=== PATIENT | female | born 1950 | race Caucasian/White ===

== ENCOUNTER 2016-12-13 07:06 | Day surgery (SDC) | payer MEDICARE, OTHER ==
--- NOTE | ~2016-12-13 | OP ---
Record Of Operation [facility] [address] [place]. [address] NAME: AYAH ARMSTRONG : 54 [place] [facility] [place] [id number] AGE: 66 ADM/REG DATE : 12/13/16 MR#: [id number] REPORT SERV DATE: 12/13/16 DICTATED BY: MATTHEW MCNULTY JR. DATE: 12/13/16 REPORT STATUS : Draft TRANSCRIBED BY: MODL DATE: 12/13/16 DATE OF PROCEDURE: REASON FOR SURGERY: This 66-year-old patient, presents with metastatic breast cancer, with spine, hip, and liver involvement. She is now scheduled for insertion of venous port. PREOPERATIVE DIAGNOSIS: Metastatic breast cancer with need of venous port for chemotherapy. POSTOPERATIVE DIAGNOSIS: Metastatic breast cancer with need of venous port for chemotherapy. SURGEON: Matthew Mcnulty M.D. SURGERY PERFORMED: Insertion of PowerPort venous port. DESCRIPTION OF PROCEDURE: With anesthesia support, the patient was prepped and draped in supine position in usual sterile fashion. 1% Xylocaine was used to anesthetize the infraclavicular region on the right side. The needle and wire were inserted into the vein without difficulty on first passage. It was documented to be in correct position on fluoroscopy. The area was anesthetized, and incision was made. The catheter was inserted through a Tear-Away introducer and the system was assembled, aspirated, flushed, and secured to the chest wall with Prolene. The wound was irrigated and hemostasis was obtained. The wound was closed with three layers of Monocryl. Final fluoroscopy revealed correct positioning of the catheter tip with no kinking or notching. The patient tolerated the procedure well without complications. BLOOD LOSS: Negligible. SPONGE COUNT: Correct. MR/KAYE Matthew Mcnulty Jr., M.D. / [id number] CC: Marky Chaidez Jr., M.D. Derek W Holland, M.D. [facility]
[~2016-12-13 07:06] MED LIST: CHEMO; MSCONTIN PO; NAP500 PO; PERCOCET 10/3251 TAB PO; PRILO PO; PRIN10 PO; PROZAC40 MG PO; TOF25 PO; TOF50 PO
[2017-04-21] MEDS ORDERED: LEVAQUIN750 MG PO (15:13)
[2017-04-23] MEDS ORDERED: MEGACEUDL PO (13:33)
== END 2016-12-13 11:27 | disposition home or self-care (01) ==
LOC: SDC 07:06
PROVIDERS: Surgery Surgical Oncology
PROC: 0JHD0WZ Insertion of Totally Implantable Vascular Access Device into Right Upper Arm Subcutaneous Tissue and Fascia, Open Approach (ICD-10-PCS; principal; 2016-12-13 08:30)
DX: C79.81 Secondary malignant neoplasm of breast (principal); I10 Essential (primary) hypertension; I73.9 Peripheral vascular disease, unspecified; F32.9 Major depressive disorder, single episode, unspecified; D64.9 Anemia, unspecified; Z90.49 Acquired absence of other specified parts of digestive tract; Z90.710 Acquired absence of both cervix and uterus; Z98.890 Other specified postprocedural states
CPT/HCPCS: 71010; 77001; 93005; C1751; J0690; J2250; J2370; J3010